=== PATIENT | male | born 1945 | race Caucasian/White ===

== ENCOUNTER 2025-06-28 12:33 | Outpatient (AMB) | payer MEDICARE, BC, SELFPAY ==
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
== END 2025-06-28 13:00 | disposition home or self-care (01) ==
LOC: HO.HSM 12:33
PROVIDERS: PCP Internal Medicine; Referring Provider Internal Medicine; Visit Provider Registered Nurse
DX: R25.1 Tremor, unspecified (principal); G25.0 Essential tremor
CPT/HCPCS: 99213

== ENCOUNTER → 2025-06-28 12:33 | Outpatient (BNVA) | payer MEDICARE, BC, SELFPAY | PROVIDERS: PCP Internal Medicine; Referring Provider Internal Medicine; Visit Provider Registered Nurse | DX: G25.0 Essential tremor (principal) | CPT/HCPCS: 99212 ==